=== PATIENT | female | born 1975 | race Caucasian/White ===

== ENCOUNTER 2019-08-12 11:30 | Outpatient (CLI) | payer SELFPAY | END 2019-08-12 11:31 | disposition EMS.NT | LOC: EMS 11:30 | PROVIDERS: ATTEND Surgery | DX: R53.1 Weakness (principal); R42 Dizziness and giddiness; Z95.0 Presence of cardiac pacemaker ==

== ENCOUNTER 2019-08-19 21:59 | Outpatient (CLI) | payer SELFPAY | END 2019-08-19 22:00 | disposition EMS.NT | LOC: EMS 21:59 | PROVIDERS: ATTEND Surgery | DX: R03.0 Elevated blood-pressure reading, without diagnosis of hypertension (principal); R20.2 Paresthesia of skin; Z95.0 Presence of cardiac pacemaker ==

== ENCOUNTER 2019-11-17 17:46 | Outpatient (CLI) | payer BC | END 2019-11-17 17:47 | disposition short-term general hospital (02) | LOC: EMS 17:46 | PROVIDERS: ATTEND Surgery | DX: R42 Dizziness and giddiness (principal); R53.83 Other fatigue; H53.2 Diplopia | CPT/HCPCS: A0425; A0427 ==

== ENCOUNTER 2020-03-14 14:40 | Outpatient (CLI) | payer BC | END 2020-03-14 14:41 | disposition short-term general hospital (02) | LOC: EMS 14:40 | PROVIDERS: ATTEND Surgery | DX: R55 Syncope and collapse (principal) | CPT/HCPCS: A0425; A0427 ==

== ENCOUNTER 2021-07-11 15:30 | Emergency (ER) | payer BC ==
--- NOTE | 2021-07-11 15:47 | ED Physician Documentation ---
History of Present Illness - Stated complaint Stated Complaint: right swollen hand & elbow,double vision,wobbely - Chief complaint Chief Complaint: Ext Problem - History obtained from History obtained from: Patient, Family - Additonal information Additional information: 46-year-old woman presents by private vehicle accompanied by her for the evaluation of right more than left hand weakness, droopiness of the left eyelid, some slow thinking and right leg swelling and weakness. All of these complaints started around 3 days ago. It is associate with confusion, lip swelling. No associated headache, chest pain, or trouble breathing. A few days before this she developed a migraine. She was on Dilaudid for this which her doctor prescribed. That is when this all started. That said they do not think it was related to that because she is been on Dilaudid plenty of times before. 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 She is not on any immunomodulators for her lupus. Review of Systems Ten Systems: 10 systems reviewed and negative Constitutional: reports: Fatigue Nose: denies: Rhinorrhea / runny nose, Congestion Cardiac: denies: Chest pain / pressure, Palpitations Respiratory: denies: Dyspnea, Cough PD PAST MEDICAL HISTORY - Present Medications Home Medications: Ambulatory Orders Medication Instructions Recorded Confirmed Acyclovir 07/11/21 Fluoxetine HCl [Prozac] 40 mg PO 07/11/21 07/11/21 Gabapentin [Neurontin] 900 mg PO TID 07/11/21 07/11/21 HYDROmorphone [Dilaudid] 3 mg PO Q4H 07/11/21 07/11/21 Levothyroxine [Synthroid] 75 mcg PO QDAC 07/11/21 07/11/21 Zolpidem Tartrate [Ambien] 10 mg PO 07/11/21 oxyCODONE [Roxicodone] 10 mg PO Q6H 07/11/21 07/11/21 predniSONE [Deltasone] 60 mg PO DAILY 5 Days #15 tablet 07/11/21 - Allergies Allergies/Adverse Reactions: Allergies Allergy/AdvReac Type Severity Reaction Status Date / Time dopamine Allergy Unknown Verified 07/11/21 16:16 PD ED PE NORMAL - Vitals Vital signs reviewed: Yes - General General: No acute distress, Well developed/nourished, Other (Slightly slow slurred speech, difficulty with attention and difficulty performing extraocular movements due to inattention. She knows that it is 2021 and states it is June, not July. She knows it is Wednesday.) - HEENT HEENT: PERRL, EOMI (Difficult to test extraocular movements because of inattention), Other (Upper and lower moderate angioedema of both lips that is symmetric with some redness as well.) - Neck Neck: Supple, no meningeal sign, No bony TTP - Cardiac Cardiac: RRR, No murmur - Respiratory Respiratory: No respiratory distress, Clear bilaterally, Other (Pacemaker in place, left upper chest wall) - Abdomen Abdomen: Normal bowel sounds, Soft, Non tender - Back Back: No CVA TTP, No spinal TTP - Derm Derm: Normal color, Warm and dry - Extremities Extremities: No deformity, No tenderness to palpate, Normal ROM s pain, No edema, No calf tenderness / cord - Neuro Neuro: production line mechanic 2-12 intact, Other (She is modestly weak in all 4 extremities but it does seem symmetric, no pronator drift in the upper extremities but she just has some general drift I think due to inattention. No other asterixis.) Eye Opening: Spontaneous Motor: Obeys Commands Verbal: Confused GCS Score: 14 Results - Vitals Vitals: Vital Signs - 24 hr 07/11/21 07/11/21 15:34 16:12 Temperature 36.8 C Heart Rate 78 68 Respiratory 18 14 Rate Blood Pressure 102/70 O2 Saturation 94 98 Oxygen O2 Source Room air - EKG (time done) 1759 Rate: Rate (enter#) Rhythm: Paced (atrial) [place]: Normal Intervals: Normal [place], Other (IVCD) QRS: Normal Ischemia: Normal ST segments - Labs Labs: Laboratory Tests 07/11/21 07/11/21 07/11/21 16:50 16:50 16:50 WBC 6.1 RBC 3.98 L Hgb 12.5 Hct 38.0 MCV 95.5 MCH 31.4 H MCHC 32.9 RDW 12.9 Plt Count 230 MPV 10.7 Neut # (Auto) 3.7 Lymph # (Auto) 1.6 [place] # (Auto) 0.5 Eos # (Auto) 0.3 Baso # (Auto) 0.0 Absolute Nucleated RBC 0.00 Nucleated RBC % 0.0 Sodium 138 Potassium 4.1 Chloride 100 L Carbon Dioxide 31 Anion Gap 7.0 BUN 11 Creatinine 0.7 Estimated GFR (MDRD) 90 Glucose 96 Calcium 9.2 Magnesium 2.0 Total Bilirubin 0.4 AST 24 ALT 13 Alkaline Phosphatase 56 Total Protein 6.7 Albumin 4.0 Globulin 2.7 Albumin/Globulin Ratio 1.5 TSH 1.15 Ethyl Alcohol < 5.0 - Rads (name of study) CT of the head without contrast is without intracranial abnormality Radiology: EMP read contemporaneously PD MEDICAL DECISION MAKING - ED course ED course: 46-year-old woman with chronic illness presents with an odd set of symptoms most notable angioedema of the lips but not the oropharynx, but also notable complaints of droopiness of the left eyelid some slow thinking and some migratory weakness especially the right hand. CT of the head was unremarkable. Notes that she cannot have MRI because of AICD in place. Blood work without pertinent positive findings. I offered to send her to a tertiary facility for consideration of cardiology, rheumatology, neurology work-up and she declined preferring to trial steroids and go home. Departure - Departure Disposition: 01 Home, Self Care Clinical Impression: Weakness, Lip swelling Ptosis Qualifiers: Laterality: left Qualified Code(s): H02.402 - Unspecified ptosis of left eyelid Condition: Good Record reviewed to determine appropriate education?: Yes Instructions: ED Weakness UKO Prescriptions: predniSONE [Deltasone] 60 mg PO DAILY 5 Days #15 tablet Comments: As discussed, the cause of your symptoms are unknown. Your blood work looks okay and the CAT scan of your head looks fine. I have offered to send you to a tertiary hospital for further work-up as you might benefit from evaluation by rheumatology, cardiology, neurology. You have declined. We are trialing some steroids but I did like you to keep a close eye on your symptoms and return or go to a tertiary facility should they worsen. Follow-up with your primary care physician next available appointment. I sent the prescription for steroids to [facility] in [place].
--- NOTE | 2021-07-11 16:28 | CT Report ---
PROCEDURE: HEAD WO INDICATIONS: R hand weak TECHNIQUE: Noncontrast 4.5 mm thick angled axial sections acquired from the foramen magnum to the vertex. For r adiation dose reduction, the following was used: automated exposure control, adjustment of mA and/or kV according to patient size. COMPARISON: None. FINDINGS: Image quality: Excellent. CSF spaces: Basal cisterns are patent. No extra-axial fluid collections. Ventricles are normal in size and shape. Brain: No midline shift. No intracranial masses or hemorrhage. Muse-white matter interface is norm al. Skull and face: Calvarium and visualized facial bones are intact, without suspicious lesions. Calci fied scalp lesions are likely benign but are of indeterminate etiology, not significantly changed fro m multiple prior studies. Sinuses: Visualized sinuses and mastoids are clear. IMPRESSION: No acute intracranial abnormality. Reviewed by: De Chance MD on 07/11/2021 4:26 PM PDT Approved by: De Chance MD on 07/11/2021 4:26 PM PDT Station ID: [id number]
--- OUTSIDE RECORDS SUMMARY | 2021-07-11 16:41 | EXTERNAL MEDICAL SUMMARY RPT | Continuity of Care Document ---
:1975 Author Organization [facility] Address [address] [place] [address] Phone Allergies No information. Encounters No information. Medications No information. Problems date description facility [id number] Syncope and collapse [facility] [id number] Hypotension, unspecified [facility] Results No information.
[2021-07-11 17:03] LABS: BASOPHILS % (AUTO) 0.7 %; EOSINOPHILS # (AUTO) 0.3 10^3/uL (0.0-0.7); EOSINOPHILS % (AUTO) 4.1 %; HGB - HEMOGLOBIN 12.5 g/dL (12.0-16.0); LYMPHOCYTES # (AUTO) 1.6 10^3/uL (1.5-3.5); LYMPHOCYTES % (AUTO) 25.7 %; MEAN CORPUSCULAR HEMOGLOBIN 31.4 pg (27.0-31.0); MEAN CORPUSCULAR HGB CONC 32.9 g/dL (32.0-36.0); MEAN CORPUSCULAR VOLUME 95.5 fL (81.0-99.0); MEAN PLATELET VOLUME 10.7 fL (7.9-10.8); MONOCYTES # (AUTO) 0.5 10^3/uL (0.0-1.0); MONOCYTES % (AUTO) 8.9 %; NEUTROPHILS # (AUTO) 3.7 10^3/uL (1.5-6.6); NEUTROPHILS % (AUTO) 60.4 %; PLT - PLATELET COUNT 230 10^3/uL (130-450); RED BLOOD COUNT 3.98 10^6/uL (4.20-5.40); RED CELL DISTRIBUTION WIDTH 12.9 % (12.0-15.0); WHITE BLOOD COUNT 6.1 x10^3/uL (4.8-10.8)
[2021-07-11 17:13] LABS: ALBUMIN/GLOBULIN RATIO 1.5 (1.0-2.2); ALKALINE PHOSPHATASE 56 IU/L (42-121); ALT ALANINE AMINOTRANSFERASE 13 IU/L (10-60); AST ASPARTATE AMINOTRANSFERASE 24 IU/L (10-42); BILIRUBIN,TOTAL 0.4 mg/dL (0.2-1.0); BUN - BLOOD UREA NITROGEN 11 mg/dL (6-20); CALCIUM 9.2 mg/dL (8.5-10.3); CARBON DIOXIDE - CO2 31 mmol/L (21-32); CHLORIDE 100 mmol/L (101-111); CREATININE 0.7 mg/dL (0.4-1.0); ETOH - ETHANOL < 5.0 mg/dL; GFR - MDRD 90 (>89); GLUCOSE 96 mg/dL (70-100); POTASSIUM 4.1 mmol/L (3.5-5.0); SODIUM 138 mmol/L (135-145); TOTAL PROTEIN 6.7 g/dL (6.7-8.2)
[2021-07-11] MEDS ORDERED: DEXAMETHASONE 10 MG/ML VIAL IVP STA (18:07)
[2021-07-11 18:21] LABS: MUDS CUTOFF CONCENTRATIONS CUTOFF CONC BELOW:
[2021-07-11 18:23] LABS: BILIRUBIN,URINE NEGATIVE (NEGATIVE); GLUCOSE, URINE (UA) NEGATIVE (NEGATIVE); KETONES,URINE (UA) NEGATIVE (NEGATIVE); LEUKOCYTE ESTERASE, URINE NEGATIVE (NEGATIVE); NITRITE,URINE NEGATIVE (NEGATIVE); OCCULT BLOOD,URINE NEGATIVE (NEGATIVE); PROTEIN,URINE NEGATIVE (NEGATIVE); UROBILINOGEN,URINE 0.2 (NORMAL) E.U./dL (NORMAL)
[2021-07-11 18:26] LABS: CLARITY,URINE CLEAR (CLEAR); HCG UR QUAL NEGATIVE
[2021-07-11 18:34] LABS: AMPHETAMINE SCREEN,URINE NEGATIVE (NEGATIVE); BARBITURATE SCREEN,UR NEGATIVE (NEGATIVE); BENZODIAZEPINES SCREEN, URINE POSITIVE (NEGATIVE); COCAINE SCREEN URINE NEGATIVE (NEGATIVE); METHADONE SCREEN, URINE NEGATIVE (NEGATIVE); METHAMPHETAMINES SCREEN, URINE NEGATIVE (NEGATIVE); OPIATE SCREEN, URINE POSITIVE (NEGATIVE); OXYCODONE SCREEN, URINE POSITIVE (NEGATIVE); PROPOXYPHENE SCREEN, URINE NEGATIVE (NEGATIVE); THC CANNABINOID SCREEN, URINE NEGATIVE (NEGATIVE); TRICYCLIC ANTIDEPRESSANT,URINE NEGATIVE (NEGATIVE)
[2021-07-11 18:52] VITALS: BP 98/70
== END 2021-07-11 18:51 | disposition home or self-care (01) ==
LOC: ED 15:30
DX: R29.898 Other symptoms and signs involving the musculoskeletal system (principal); R22.0 Localized swelling, mass and lump, head; H02.402 Unspecified ptosis of left eyelid
CPT/HCPCS: 36415; 80053; 80306; 80320; 81001; 81003; 81025; 83735; 84443; 85025; 87086; 93005; 96374; 99284

== ENCOUNTER 2021-09-08 12:58 | Emergency (ER) | payer BC ==
[2021-09-08 13:47] LABS: BASOPHILS # (AUTO) 0.1 10^3/uL (0.0-0.1); BASOPHILS % (AUTO) 0.6 %; EOSINOPHILS # (AUTO) 0.3 10^3/uL (0.0-0.7); EOSINOPHILS % (AUTO) 2.6 %; HCT - HEMATOCRIT 40.3 % (37.0-47.0); HGB - HEMOGLOBIN 13.3 g/dL (12.0-16.0); LYMPHOCYTES # (AUTO) 1.2 10^3/uL (1.5-3.5); LYMPHOCYTES % (AUTO) 12.1 %; MEAN CORPUSCULAR HEMOGLOBIN 30.6 pg (27.0-31.0); MEAN CORPUSCULAR VOLUME 92.6 fL (81.0-99.0); MEAN PLATELET VOLUME 11.2 fL (7.9-10.8); MONOCYTES # (AUTO) 0.7 10^3/uL (0.0-1.0); MONOCYTES % (AUTO) 6.5 %; NEUTROPHILS % (AUTO) 77.7 %; PLT - PLATELET COUNT 206 10^3/uL (130-450); RED BLOOD COUNT 4.35 10^6/uL (4.20-5.40); RED CELL DISTRIBUTION WIDTH 11.9 % (12.0-15.0); WHITE BLOOD COUNT 10.3 x10^3/uL (4.8-10.8)
[2021-09-08 14:19] LABS: ALBUMIN 4.7 g/dL (3.2-5.5); ALBUMIN/GLOBULIN RATIO 1.6 (1.0-2.2); ALKALINE PHOSPHATASE 75 IU/L (42-121); ALT ALANINE AMINOTRANSFERASE 15 IU/L (10-60); AST ASPARTATE AMINOTRANSFERASE 26 IU/L (10-42); BILIRUBIN,TOTAL < 0.2 mg/dL (0.2-1.0); BUN - BLOOD UREA NITROGEN 18 mg/dL (6-20); CALCIUM 9.8 mg/dL (8.5-10.3); CARBON DIOXIDE - CO2 28 mmol/L (21-32); CHLORIDE 101 mmol/L (101-111); CREATININE 0.9 mg/dL (0.4-1.0); GFR - MDRD 67 (>89); GLUCOSE 123 mg/dL (70-100); LIPASE 23 U/L (22-51); POTASSIUM 4.4 mmol/L (3.5-5.0); SODIUM 137 mmol/L (135-145); TOTAL PROTEIN 7.6 g/dL (6.7-8.2)
--- NOTE | 2021-09-08 14:53 | ED Physician Documentation ---
History of Present Illness - Stated complaint Stated Complaint: GLF/SHOULDER INJURY - Chief complaint Chief Complaint: Trauma Hd/Nk - History obtained from History obtained from: Patient, Family - Additonal information Additional information: The patient is brought to the emergency department by for chief complaint plaint of fall downstairs and lightheadedness. The patient has been having episodes of lightheadedness fainting and falls since being put on medication after an extended stay in rehab for opiate and benzodiazepine dependency. She was brought home 8 days ago by her and states she cannot be left alone because of the sudden episodes of lightheadedness, leading to collapse. Her physicians are aware of this and have adjusted her Midodrine to try to counteract the lability in her blood pressure. The patient has a AICD which was placed 2 years ago After cardiac arrest secondary to lupus cardiomyopathy, and her heart rhythms have been fairly stable. She prior to rehab was on a combination of oxycodone, lorazepam, and gabapentin. She now takes Suboxone, gabapentin, tizanidine, and trazodone. The patient states she has not been taking any of her meds in greater quantities than she is supposed to, and denies taking any other drugs or alcohol. She has been very drowsy this morning which she attributes to not sleeping well last night. states he got up this morning and went to the gym and patient had gone back to bed prior to his leaving because she was sleepy. He states that his daughter and son-in-law are staying with them and that just after he got home, the patient got up from bed when the daughter happened to not be nearby, came to the head of the stairs, and promptly collapsed, falling down approximately 15 stairs. The patient states that she has pain behind her left shoulder and that she has some mild pain in her Neck. She was having trouble lifting her left arm, her states, after the fall. Patient is attributes this to pain in the shoulder. Review of Systems Ten Systems: 10 systems reviewed and negative Constitutional: reports: Reviewed and negative Eyes: reports: Reviewed and negative Ears: reports: Reviewed and negative Nose: reports: Reviewed and negative Throat: reports: Reviewed and negative Cardiac: reports: Reviewed and negative Respiratory: reports: Reviewed and negative GI: reports: Reviewed and negative : reports: Reviewed and negative Skin: reports: Reviewed and negative Musculoskeletal: reports: Neck pain, Joint pain (Left shoulder) Neurologic: reports: Generalized weakness, Syncope, Reviewed and negative Psychiatric: reports: Reviewed and negative Endocrine: reports: Reviewed and negative Immunocompromised: reports: Reviewed and negative PD PAST MEDICAL HISTORY - Past Medical History Past Medical History: Yes Other Past Medical History: lupus. MS. fibromyalgia. degenerative disc disease. pacemaker. hypotension - Past Surgical History Past Surgical History: Yes - Present Medications Home Medications: Ambulatory Orders Medication Instructions Recorded Confirmed Acyclovir 07/11/21 Fluoxetine HCl [Prozac] 40 mg PO 07/11/21 07/11/21 Gabapentin [Neurontin] 900 mg PO TID 07/11/21 07/11/21 HYDROmorphone [Dilaudid] 3 mg PO Q4H 07/11/21 07/11/21 Levothyroxine [Synthroid] 75 mcg PO QDAC 07/11/21 07/11/21 Zolpidem Tartrate [Ambien] 10 mg PO 07/11/21 oxyCODONE [Roxicodone] 10 mg PO Q6H 07/11/21 07/11/21 predniSONE [Deltasone] 60 mg PO DAILY 5 Days #15 tablet 07/11/21 - Allergies Allergies/Adverse Reactions: Allergies Allergy/AdvReac Type Severity Reaction Status Date / Time dopamine Allergy Unknown Verified 07/11/21 16:16 - Social History Does the pt smoke?: No Smoking Status: Never smoker PD ED PE NORMAL - Vitals Vital signs reviewed: Yes - General General: No acute distress, Well developed/nourished, Other (Answers questions appropriately but is drowsy.) - HEENT HEENT: Atraumatic, PERRL, EOMI, Moist mucous membranes - Neck Neck: Supple, no meningeal sign, No bony TTP - Cardiac Cardiac: RRR, No murmur, Strong equal pulses - Respiratory Respiratory: No respiratory distress, Clear bilaterally - Abdomen Abdomen: Soft, Non tender, Non distended - Back Back: No CVA TTP, No spinal TTP - Derm Derm: Normal color, Warm and dry, No rash - Extremities Extremities: No deformity, Other (Tenderness to palpation over the left scapula and posterior shoulder without edema, deformity, or contusion.) - Neuro Neuro: oracle manufacturing consultant 2-12 intact, No motor deficit, No sensory deficit, Other (Patient is extremely drowsy trailing off repeatedly in the midst of conversation, though when she does answer questions, it is appropriate.) - Psych Psych: Other (Heavily drowsy but calm and cooperative.) Results - Vitals Vitals: Oxygen O2 Source Room air - Labs Labs: Laboratory Tests 09/08/21 09/08/21 09/08/21 13:23 13:25 13:25 WBC 10.3 RBC 4.35 Hgb 13.3 Hct 40.3 MCV 92.6 MCH 30.6 MCHC 33.0 RDW 11.9 L Plt Count 206 MPV 11.2 H Neut # (Auto) 8.0 H Lymph # (Auto) 1.2 L [place] # (Auto) 0.7 Eos # (Auto) 0.3 Baso # (Auto) 0.1 Absolute Nucleated RBC 0.00 Nucleated RBC % 0.0 Sodium 137 Potassium 4.4 Chloride 101 Carbon Dioxide 28 Anion Gap 8.0 BUN 18 Creatinine 0.9 Estimated GFR (MDRD) 67 L Glucose 123 H POC Whole Bld Glucose 126 H Calcium 9.8 Total Bilirubin < 0.2 L AST 26 ALT 15 Alkaline Phosphatase 75 Troponin I High Sens Total Protein 7.6 Albumin 4.7 Globulin 2.9 Albumin/Globulin Ratio 1.6 Lipase 23 Urine Color Urine Clarity Urine pH Ur Specific [place] Urine Protein Urine Glucose (UA) Urine Ketones Urine Occult Blood Urine Nitrite Urine Bilirubin Urine Urobilinogen Ur Leukocyte Esterase Ur Microscopic Review Urine Culture Comments Urine HCG, Qual Urine Opiates Screen Ur Oxycodone Screen Urine Methadone Screen Ur Propoxyphene Screen Ur Barbiturates Screen Ur Tricyclics Screen Ur Phencyclidine Scrn Ur Amphetamine Screen U Methamphetamines Scrn U Benzodiazepines Scrn Urine Cocaine Screen U Cannabinoids Screen Ethyl Alcohol 09/08/21 09/08/21 09/08/21 13:25 13:25 16:34 WBC RBC Hgb Hct MCV MCH MCHC RDW Plt Count MPV Neut # (Auto) Lymph # (Auto) [place] # (Auto) Eos # (Auto) Baso # (Auto) Absolute Nucleated RBC Nucleated RBC % Sodium Potassium Chloride Carbon Dioxide Anion Gap BUN Creatinine Estimated GFR (MDRD) Glucose POC Whole Bld Glucose Calcium Total Bilirubin AST ALT Alkaline Phosphatase Troponin I High Sens 3.8 Total Protein Albumin Globulin Albumin/Globulin Ratio Lipase Urine Color Urine Clarity Urine pH Ur Specific [place] Urine Protein Urine Glucose (UA) Urine Ketones Urine Occult Blood Urine Nitrite Urine Bilirubin Urine Urobilinogen Ur Leukocyte Esterase Ur Microscopic Review Urine Culture Comments Urine HCG, Qual NEGATIVE Urine Opiates Screen Ur Oxycodone Screen Urine Methadone Screen Ur Propoxyphene Screen Ur Barbiturates Screen Ur Tricyclics Screen Ur Phencyclidine Scrn Ur Amphetamine Screen U Methamphetamines Scrn U Benzodiazepines Scrn Urine Cocaine Screen U Cannabinoids Screen Ethyl Alcohol < 5.0 09/08/21 16:34 WBC RBC Hgb Hct MCV MCH MCHC RDW Plt Count MPV Neut # (Auto) Lymph # (Auto) [place] # (Auto) Eos # (Auto) Baso # (Auto) Absolute Nucleated RBC Nucleated RBC % Sodium Potassium Chloride Carbon Dioxide Anion Gap BUN Creatinine Estimated GFR (MDRD) Glucose POC Whole Bld Glucose Calcium Total Bilirubin AST ALT Alkaline Phosphatase Troponin I High Sens Total Protein Albumin Globulin Albumin/Globulin Ratio Lipase Urine Color YELLOW Urine Clarity CLEAR Urine pH 7.0 Ur Specific [place] 1.015 Urine Protein TRACE Urine Glucose (UA) NEGATIVE Urine Ketones NEGATIVE Urine Occult Blood NEGATIVE Urine Nitrite NEGATIVE Urine Bilirubin NEGATIVE Urine Urobilinogen 0.2 (NORMAL) Ur Leukocyte Esterase NEGATIVE Ur Microscopic Review NOT INDICATED Urine Culture Comments NOT INDICATED Urine HCG, Qual Urine Opiates Screen NEGATIVE Ur Oxycodone Screen NEGATIVE Urine Methadone Screen NEGATIVE Ur Propoxyphene Screen NEGATIVE Ur Barbiturates Screen POSITIVE H Ur Tricyclics Screen NEGATIVE Ur Phencyclidine Scrn NEGATIVE Ur Amphetamine Screen NEGATIVE U Methamphetamines Scrn NEGATIVE U Benzodiazepines Scrn POSITIVE H Urine Cocaine Screen NEGATIVE U Cannabinoids Screen NEGATIVE Ethyl Alcohol - Rads (name of study) head CT Radiology: Final report received, EMP read indepedently, See rad report (Negativ e) shoulder XR L Radiology: Final report received, EMP read indepedently, See rad report (neg) CT c-spine Radiology: Final report received, EMP read indepedently, See rad report (Negative for acute findings) PD MEDICAL DECISION MAKING - ED course Complexity details: reviewed old records, reviewed results, re-evaluated patient, considered differential, d/w patient, d/w family ED course: Patient was worked up with EKG, head and C-spine CTs, left shoulder x-ray series, UDS, and laboratory studies. The CT scans were normal, as was the left shoulder x-ray. Labs were unremarkable. The patient's urine drug screen was positive for benzodiazepines and barbiturates. I did discuss this with the patient who seemed to be more alert now, and she stated she does not know how she would have gotten either 1 of those medications in her system. She thought that she may have been given a barbiturate early in her stay at rehab, but this was over a month ago. I did have a long conversation with the patient and her regarding the patient's medications and where to go from here. The patient does have some autonomic instability which is been recognized and managed by her associate dentist with the midodrine. She should continue to follow closely to try to determine the cause of her autonomic lability and the best treatment or path toward resolution. We have discussed the usual indications for return. Departure - Departure Disposition: 01 Home, Self Care Clinical Impression: Episode of syncope Qualifiers: Syncope type: unspecified Qualified Code(s): R55 - Syncope and collapse Fall down stairs Qualifiers: Encounter type: initial encounter Qualified Code(s): W10.8XXA - Fall (on) (from) other stairs and steps, initial encounter Shoulder contusion Qualifiers: Encounter type: initial encounter Laterality: left Qualified Code(s): S40.012A - Contusion of left shoulder, initial encounter Condition: Stable Instructions: ED Syncope Vasovagal, ED Contusion Shoulder Comments: Your CT scans look good. There is no evidence of bleeding in your brain or broken bones in your neck. Your shoulder x-ray shows no evidence of dislocation or Fractures. Overall, your laboratory studies look good. Your urine drug screen was positive for barbiturates and benzodiazepines (the "-pams"). I have reviewed your medication list to see if there are any medications on your list that could possibly create false positives. Please schedule follow-up with your associate dentist to discuss the ongoing issues with low blood pressure and determine what further work-up should be done to troubleshoot this. Discharge Date/Time: 09/08/21 18:11
--- NOTE | 2021-09-08 15:18 | XRAY Report ---
PROCEDURE: Shoulder 3 View LT INDICATIONS: fall down stairs/pain L shoulder TECHNIQUE: 3 views of the shoulder were acquired. COMPARISON: None. FINDINGS: Bones: No fractures or dislocations. No suspicious bony lesions. Visualized ribs appear intact. Soft tissues: No suspicious soft tissue calcifications. IMPRESSION: No shoulder fracture or dislocation. No gross soft tissue abnormality. Reviewed by: Gino Mccormick MD on 09/08/2021 3:16 PM PDT Approved by: Gino Mccormick MD on 09/08/2021 3:16 PM PDT Station ID: [id number]
--- NOTE | 2021-09-08 15:19 | CT Report ---
PROCEDURE: CERVICAL SPINE WO INDICATIONS: fall down stairs/neck pain TECHNIQUE: Noncontrast 3 mm thick sections acquired from the skull base to the T4 level. Sagittal and coronal r eformats were then constructed. For radiation dose reduction, the following was used: automated exp osure control, adjustment of mA and/or kV according to patient size. COMPARISON: None. FINDINGS: Image quality: Excellent. Bones: Prior fusion at C5-6 and C6-7 level is seen within hardening artifacts. Straightening of yosi l cervical lordosis is noted. No fractures or dislocations. No gross hardware loosening or failure. D egenerative endplate changes are noted at C4-5 level. No significant central canal stenosis or neural foraminal narrowing is seen. Visualized superior ribs are intact. Soft tissues: Prevertebral soft tissues are normal in thickness. No paravertebral hematomas. No ap ical pneumothoraces. IMPRESSION: 1. No acute cervical spine fracture or dislocation. 2. Prior fusion at C5-C7 levels. Generative disc disease at C4-5 level. Reviewed by: Gino Mccormick MD on 09/08/2021 3:18 PM PDT Approved by: Gino Mccormick MD on 09/08/2021 3:18 PM PDT Station ID: [id number]
--- NOTE | 2021-09-08 15:21 | CT Report ---
PROCEDURE: HEAD WO INDICATIONS: fall down stairs/head injury/ALOC TECHNIQUE: Noncontrast 4.5 mm thick angled axial sections acquired from the foramen magnum to the vertex. For r adiation dose reduction, the following was used: automated exposure control, adjustment of mA and/or kV according to patient size. COMPARISON: 07/11/2021. FINDINGS: Image quality: Excellent. CSF spaces: Basal cisterns are patent. No extra-axial fluid collections. Ventricles are normal in size and shape. Brain: No midline shift. No intracranial masses or hemorrhage. Muse-white matter interface is norm al. Skull and face: Calvarium and visualized facial bones are intact. Calcified lesions are again seen i nvolving left frontal and posterior parietal scalp unchanged in size and appearance from prior study. Sinuses: Visualized sinuses and mastoids are clear. IMPRESSION: 1. No CT evidence of acute intracranial abnormalities. 2. No significant changes from previous study. Reviewed by: Gino Mccormick MD on 09/08/2021 3:19 PM PDT Approved by: Gino Mccormick MD on 09/08/2021 3:19 PM PDT Station ID: [id number]
[2021-09-08 16:39] LABS: MUDS CUTOFF CONCENTRATIONS CUTOFF CONC BELOW:
[2021-09-08 16:43] LABS: BILIRUBIN,URINE NEGATIVE (NEGATIVE); GLUCOSE, URINE (UA) NEGATIVE (NEGATIVE); KETONES,URINE (UA) NEGATIVE (NEGATIVE); LEUKOCYTE ESTERASE, URINE NEGATIVE (NEGATIVE); NITRITE,URINE NEGATIVE (NEGATIVE); OCCULT BLOOD,URINE NEGATIVE (NEGATIVE); PROTEIN,URINE TRACE mg/dL (NEGATIVE); UROBILINOGEN,URINE 0.2 (NORMAL) E.U./dL (NORMAL)
[2021-09-08 16:45] LABS: CLARITY,URINE CLEAR (CLEAR)
[2021-09-08 16:50] LABS: HCG UR QUAL NEGATIVE
[2021-09-08 16:58] LABS: AMPHETAMINE SCREEN,URINE NEGATIVE (NEGATIVE); BENZODIAZEPINES SCREEN, URINE POSITIVE (NEGATIVE); COCAINE SCREEN URINE NEGATIVE (NEGATIVE); METHADONE SCREEN, URINE NEGATIVE (NEGATIVE); METHAMPHETAMINES SCREEN, URINE NEGATIVE (NEGATIVE); OPIATE SCREEN, URINE NEGATIVE (NEGATIVE); THC CANNABINOID SCREEN, URINE NEGATIVE (NEGATIVE); TRICYCLIC ANTIDEPRESSANT,URINE NEGATIVE (NEGATIVE)
[2021-09-08 16:59] LABS: BARBITURATE SCREEN,UR POSITIVE (NEGATIVE); OXYCODONE SCREEN, URINE NEGATIVE (NEGATIVE); PROPOXYPHENE SCREEN, URINE NEGATIVE (NEGATIVE)
[2021-09-08 17:55] VITALS: BP 119/84
== END 2021-09-08 18:11 | disposition home or self-care (01) ==
LOC: ED 12:58
DX: R55 Syncope and collapse (principal); S40.012A Contusion of left shoulder, initial encounter; W10.9XXA Fall (on) (from) unspecified stairs and steps, initial encounter; Y93.89 Activity, other specified; Y92.009 Unspecified place in unspecified non-institutional (private) residence as the place of occurrence of the external cause
CPT/HCPCS: 36415; 80053; 80306; 80320; 81001; 81003; 81025; 83690; 84484; 85025; 87086; 93005; 99282; 99284

== ENCOUNTER 2023-04-13 08:00 | Outpatient (CLI) | payer BC ==
--- NOTE | 2023-04-13 17:38 | XRAY Report ---
PROCEDURE: Chest 2V INDICATIONS: CHEST DISCOMFORT TECHNIQUE: 2 views of the chest were acquired. COMPARISON: None. FINDINGS: Surgical changes and devices: Pacemaker. Lungs and pleura: No pleural effusions or pneumothorax. Lungs are clear. Mediastinum: Mediastinal contours appear normal. Heart size is normal. Bones and chest wall: No suspicious bony lesions. Overlying soft tissues appear unremarkable. IMPRESSION: No acute cardiopulmonary process. Reviewed by: Carola Rogers MD on 04/13/2023 5:36 PM PST Approved by: Carola Rogers MD on 04/13/2023 5:36 PM PST Station ID: [id number]
== END 2023-04-13 23:59 | disposition home or self-care (01) ==
LOC: DI.N 08:00
PROVIDERS: ATTEND Nurse Practitioner
DX: R07.89 Other chest pain (principal)

== ENCOUNTER 2023-06-09 08:15 | Outpatient (CLI) | payer BC ==
--- NOTE | 2023-06-09 13:12 | XRAY Report ---
PROCEDURE: Knee 1-2V RT INDICATIONS: PAIN IN RIGHT KNEE TECHNIQUE: 2 views of the knee(s) were acquired. COMPARISON: None. FINDINGS: Bones: No fracture or subluxation seen. Soft tissues: No radiographically evident suprapatellar joint effusion seen. No radiopaque foreign felicia dy seen. IMPRESSION: No acute findings Reviewed by: Kings Leone MD on 06/09/2023 1:10 PM PDT Approved by: Kings Leone MD on 06/09/2023 1:10 PM PDT Station ID: [id number]
--- NOTE | 2023-06-09 13:14 | XRAY Report ---
PROCEDURE: Ankle 3+V RT INDICATIONS: ANKLE JOINT PAIN, RIGHT TECHNIQUE: 3 views of the ankle were acquired. COMPARISON: None. FINDINGS: Bones: No fracture or dislocation is seen. Ankle mortise appears intact. No suspicious bony lesions . Soft tissues: Soft tissue swelling about the lateral malleolus noted. IMPRESSION: Soft tissue swelling about the lateral ankle No fracture or subluxation evident Reviewed by: Kings Leone MD on 06/09/2023 1:12 PM PDT Approved by: Kings Leone MD on 06/09/2023 1:12 PM PDT Station ID: [id number]
== END 2023-06-09 08:30 | disposition home or self-care (01) ==
LOC: DI.N 08:15
PROVIDERS: ATTEND Registered Nurse
DX: M25.561 Pain in right knee (principal); M25.571 Pain in right ankle and joints of right foot; R22.41 Localized swelling, mass and lump, right lower limb

== ENCOUNTER 2023-12-01 12:00 | Outpatient (CLI) | payer BC | END 2023-12-01 12:15 | disposition home or self-care (01) | LOC: LAB.N 12:00 | PROVIDERS: ATTEND Physician Assistant | DX: L02.811 Cutaneous abscess of head [any part, except face] (principal) | CPT/HCPCS: 87070; 87205 ==